=== PATIENT | female | born 1955 | race Caucasian/White ===

== ENCOUNTER 2022-10-05 00:11 | Day surgery (SDC) | payer MEDICARE, SELFPAY ==
[2022-09-26 13:48] VITALS: BMI 31.0
--- NOTE | 2022-09-26 14:07 | PC.NURSE ---
Report to the Outpatient Waiting Room, entrance under the green pavilion located off [address], at time __6:00AM on date __10/05/22 . Planned Procedure Time: __7:30AM . Time changes happen often and if your time is changed the preop area will call you the afternoon before. - You and your visitor will be asked to self-screen and do not enter if you have any COVID symptoms. - Only one visitor is requested with a max of two and NO children visitors are allowed at this time. - The patient visitor may be requested to leave or wait in car when not with patient due to distancing restrictions. - A mask is optional within the hospital. Patients may have clear liquids (water, carbonated beverages, clear teas, apple juice) until 3 hours prior to surgery with a maximum of 20 ounces. - No food from midnight until time of surgery Take the following medications with a SIP of water the morning of surgery: ___ESCITALOPRAM,LEVOTHYROXINE, TRAMADOL NEEDED Medications to discontinue per physician ____HOLD ALL VITAMINS/SUPPLEMENTS 3 DAYS PRE-OP Date to take last dose___10/01/22 Please no make-up, nail mauritanian, hairspray, perfume, deodorant, or body powder the day of surgery. No jewelry (including any body piercings) or valuables the day of surgery, leave them at home. Please take a shower or bath the night before, or the morning of, surgery with an antibacterial soap. Wear comfortable, loose fitting clothing. Children are encouraged to wear pajamas. - Jewelry must be removed prior to entering the operating room. Rings and piercings that are not removed may be cut off. - The hospital will not accept responsibility for valuables. - Please leave all valuables, including medications, at home the day of surgery. If you are going home after surgery, a licensed regional truck driver must drive you home. - NO public transportation without another adult if you receive anesthesia. - We recommend that an adult stay with you for 24 hours following discharge. - We also recommend that you do not drive, make important decision, drink alcoholic beverages, or take any drugs that were not prescribed by your health care provider for at least 24 hours after your discharge time. Follow any additional instructions given to you from your surgeon. If you or anyone in your household have experienced Covid symptoms in the past week, please notify your surgeon or the nurse liaison at the phone number below for possible testing. Telephone instructions given to __PATIENT and asked if any additional questions and then verbalized understanding. Patient advised to call surgeon office or pre surgery nurse liaison [phone] if any additional questions.
[2022-10-05 07:06] VITALS: BP 119/74; PULSE 48; RESP 16; TEMP 36.3; O2SAT 100
--- NOTE | 2022-10-05 07:16 | WPDHPUPDATE1 ---
History and Physical Update Update Date/Time: 10/05/22 07:16 History and Physical has been reviewed, including an updated exam of the patient. There are NO changes in the patient's condition. Risks, benefits, and alternatives have been discussed and questions answered. Patient agrees to proceed with procedure.
[2022-10-05] MEDS: LACTATED RINGERS 1,000 ML 30 ML IV CONT (07:21)
--- NOTE | 2022-10-05 07:28 | PM.IMHP ---
H&P: HPI History of Present Illness Date/Time: 10/05/22 07:28 Chief Complaint: Bladder lesion Narrative: 66-year-old with symptoms consistent with Hunner's ulceration. Visible lesion seen on cystoscopy Review of Systems Review of Systems: All systems reviewed & are unremarkable except as noted in HPI and below PMFSH Social History Social History Smoking packs per day: 0.5 Smoking cigarettes per day: 10.0 Years smoked: 25 Smoking pack-years: 12.50 Smoking status: Former smoker Tobacco type: cigarettes Smoking end date: 03/23/92 Alcohol intake: current Substance use: never Living arrangements: with family Additional living arrangements comments: SPOUSE Spiritual care concerns: No Meds Home Medications and Allergies Home Medications Medication Instructions Recorded Confirmed Type aloe vera 3 cap PO DAILY 09/26/22 09/26/22 History anastrozole 1 mg tablet 1 mg PO QAM 09/26/22 09/26/22 History escitalopram oxalate 20 mg tablet 20 mg PO QAM 09/26/22 09/26/22 History lactobacillus combination no.8 3 3 cell PO HS 09/26/22 09/26/22 History billion cell capsule levothyroxine 50 mcg tablet 50 mcg PO QAM 09/26/22 09/26/22 History tramadol 50 mg tablet 50 mg PO TID PRN Pain 09/26/22 09/26/22 History Allergies Allergy/AdvReac Type Severity Reaction Status Date / Time penicillin G Allergy Rash Verified 10/05/22 06:59 Vital Signs Vital Signs - 24 hr 10/05/22 07:06 Temperature 97.3 F L Pulse Rate 48 L Respiratory Rate 16 Blood Pressure 119/74 Pulse Oximetry 100 Oxygen Delivery Room Air Exam Narrative: Normal breathing No acute distress Alert oriented x3 Assessment and Plan Assessment and plan (1) Hunner's ulcer: Code(s): N30.10 - Interstitial cystitis (chronic) without hematuria Status: Acute Assessment and Plan: Cystoscopy, bladder biopsy, steroid injection. Understands risks of bleeding, infection, lack of efficacy, need for repeat procedures Agrees to proceed
--- NOTE | 2022-10-05 07:48 | P.PNAN_ITS ---
Anes - Initial Pre Proc Eval Procedure: Operation Date: 10/05/22 08:30 Proposed Procedures p Cystoscopy with Bladder Biopsy, Steroid Injection - Silvino Alvarado MD Date/Time: 10/05/22 07:48 Surgeon: Silvino Alvarado MD Pre Op Diagnosis: Hyper Vascular Lesion of Urinary Bladder Patient Data Age: 66 Gender: F Height: 1.63 m Weight: 81.8 kg Last Vital Signs Temp 36.3 C L 10/05/22 07:06 Pulse 48 L 10/05/22 07:06 Resp 16 10/05/22 07:06 BP 119/74 10/05/22 07:06 Pulse Ox 100 10/05/22 07:06 O2 Del Method Room Air 10/05/22 07:06 Allergies Allergy/AdvReac Type Severity Reaction Status Date / Time penicillin G Allergy Rash Verified 10/05/22 06:59 Home Medications Medication Instructions Recorded Confirmed Type aloe vera 3 cap PO DAILY 09/26/22 09/26/22 History anastrozole 1 mg tablet 1 mg PO QAM 09/26/22 09/26/22 History escitalopram oxalate 20 mg tablet 20 mg PO QAM 09/26/22 09/26/22 History lactobacillus combination no.8 3 3 cell PO HS 09/26/22 09/26/22 History billion cell capsule levothyroxine 50 mcg tablet 50 mcg PO QAM 09/26/22 09/26/22 History tramadol 50 mg tablet 50 mg PO TID PRN Pain 09/26/22 09/26/22 History Patient hx anesthesia problems: none Family hx anesthesia problems: none Results Review: All pre-operative results and documents have been reviewed as part of the pre- operative evaluation. [facility] Social History Social History Smoking packs per day: 0.5 Smoking cigarettes per day: 10.0 Years smoked: 25 Smoking pack-years: 12.50 Smoking status: Former smoker Tobacco type: cigarettes Smoking end date: 03/23/92 Alcohol intake: current Substance use: never Living arrangements: with family Additional living arrangements comments: SPOUSE Spiritual care concerns: No Anes - Eval Final PreProcedure Day of Procedure 10/05/22 07:48 Patient weight: obese Heart: regular rate and rhythm Lungs: clear to auscultation Airway: Mallampati scale class II Neurological: alert and oriented Last oral intake: >/= 8 hours ASA classification: III Emergent: no Anesthetic plan: proceed Anesthesia type and monitoring: general GIVS and standard monitoring Results Review: All pre-operative results and documents have been reviewed as part of the pre- operative evaluation. Informed Consent: The patient's anesthetic plan and its attendant risks and benefits were discussed with the patient/family/POA. Questions were solicited and answers provided to the satisfaction of the patient/family/POA.
[2022-10-05] MEDS: ceFAZolin 2 GM/D5W 50 ML 2 GM/50 ML BAG IVPB (08:27)
[2022-10-05] MEDS: LIDOCAINE HCL 2% GEL UROJET 10 ML PKG MUCOUS MEM (08:39)
[2022-10-05] MEDS: TRIAMCINOLONE ACET INJ 40 MG/ML VIAL 200 MG IM (08:44)
--- NOTE | 2022-10-05 08:51 | W.PM.PROC2 ---
Procedure Note - Detailed Date of Procedure 10/05/22 Pre-op Diagnosis Hyper Vascular Lesion of Urinary Bladder Post-op Diagnosis Same Procedure Performed Cystoscopy, bladder biopsy, steroid injection Surgeon Silvino Alvarado MD Anesthesia MAC and Local Indications This is a woman with visible lesions on cystoscopy consistent with Hunner's ulcers. She also has symptoms consistent with that as well. She is here today for steroid injection. She understands risks of bleeding, infection, lack of efficacy, damage to the urinary tract, need for repeat procedures. She agrees to proceed Findings Multiple areas of Hunner's ulceration Description of Procedure She was correctly identified. Informed consent obtained. She from the operating room. She was given MAC anesthesia. She was placed in the dorsal lithotomy position. She was prepped and draped in a sterile fashion. Time-out performed. Uro jet was applied. Cystoscopy was performed. There was for areas of Hunner's ulceration her bladder. Most of them on the posterior wall. All of the were away from the ureters. I biopsied 1 of these areas. I then general see fulgurated all areas. I then injected Kenalog. 40 mg per mill. 5 cc total was equal to 100 mg of Kenalog. There was minimal bleeding from the injection sites. Her bladder was examined under low insufflation pressures. There was no active bleeding. She was awakened transferred to PACU in stable condition. Estimated Blood Loss 1 Drains No Packing No Pathology Yes (Sent to pathology) Complications No immediate complications Condition Stable Disposition PACU
[2022-10-05 08:54] VITALS: BP 132/69; PULSE 52; RESP 12; O2SAT 94
[2022-10-05 09:20] VITALS: BP 139/56; PULSE 45; RESP 12
[2022-10-05] MEDS: oxyCODONE HCL (*CRX) 5 MG TAB IR PO (09:45)
[2022-10-05 09:50] VITALS: BP 130/76; PULSE 46; RESP 12
== END 2022-10-05 09:56 | disposition home or self-care (01) ==
PROVIDERS: Visit Provider Urology
PROC: 0TBB8ZX Excision of Bladder, Via Natural or Artificial Opening Endoscopic, Diagnostic (ICD-10-PCS; CPT 52204; principal; 2022-10-05 08:30)
DX: N30.10 Interstitial cystitis (chronic) without hematuria (principal); Z87.891 Personal history of nicotine dependence
CPT/HCPCS: 52204; 52283; 88305; A9270; J0690; J2250; J2704; J3010; J3301; J7120

== ENCOUNTER 2024-06-12 00:15 | Day surgery (SDC) | payer MEDICARE, SELFPAY ==
--- NOTE | 2024-06-07 17:02 | PM.IMHP ---
H&P: HPI History of Present Illness Date/Time: 06/07/24 17:02 Chief Complaint: bladder pain Narrative: h/o Hunner ulcer Review of Systems Review of Systems: All systems reviewed & are unremarkable except as noted in HPI and below PMFSH Social History Social History Smoking packs per day: 0.5 Smoking cigarettes per day: 10.0 Years smoked: 25 Smoking pack-years: 12.50 Smoking status: Former smoker Tobacco type: cigarettes Smoking end date: 03/23/92 Alcohol intake: current Substance use: never Living arrangements: with family Additional living arrangements comments: SPOUSE Spiritual care concerns: No Meds Home Medications and Allergies Home Medications Medication Instructions Recorded Confirmed Type aloe vera 3 cap PO DAILY 09/26/22 09/26/22 History anastrozole 1 mg tablet 1 mg PO QAM 09/26/22 09/26/22 History escitalopram oxalate 20 mg tablet 20 mg PO QAM 09/26/22 09/26/22 History lactobacillus combination no.8 3 3 cell PO HS 09/26/22 09/26/22 History billion cell capsule levothyroxine 50 mcg tablet 50 mcg PO QAM 09/26/22 09/26/22 History tramadol 50 mg tablet 50 mg PO TID PRN Pain 09/26/22 09/26/22 History hydrocodone 5 mg-acetaminophen 325 1 tablet PO Q6H PRN pain #14 tabs 10/05/22 Rx mg tablet phenazopyridine 200 mg tablet 200 mg PO TID PRN pain 6 doses #30 10/05/22 Rx (Pyridium) tabs Allergies Allergy/AdvReac Type Severity Reaction Status Date / Time penicillin G Allergy Rash Verified 10/05/22 06:59 Exam Narrative: NAD A+O x3 Assessment and Plan Assessment and plan (1) Hunner's ulcer: Code(s): N30.10 - Interstitial cystitis (chronic) without hematuria Status: Acute Assessment and Plan: cysto/bx/steroid injection
[2024-06-08 14:21] VITALS: BMI 30.9
--- NOTE | 2024-06-08 14:29 | PC.NURSE ---
9 Report to the Outpatient Waiting Room, entrance under the green pavilion located off [facility], at time _0615_ on date _[id number]_. Planned Procedure Time: _0815_.? Time changes happen often and if your time is changed the preop area will call you the afternoon before. - You and your visitor will be asked to self-screen and do not enter if you have any COVID symptoms. Please call surgeon if you need to reschedule. - A mask is optional within the hospital at this time. Patients may have clear liquids (water, carbonated beverages, clear teas, apple juice) until 3 hours prior to surgery with a maximum of 20 ounces. - No food from midnight until time of surgery and no smoking Take only the following medications with a SIP of water on the morning of surgery: ____Escitalopram and Levothyroxine. DO NOT STOP ANY OF YOUR OTHER PRESCRIPTION MEDICATIONS PRIOR TO SURGERY EXCEPT THE FOLLOWING Medications to discontinue per physician ____Patient already stopped probiotic. Please no make-up, nail czech, hairspray, perfume, deodorant, or body powder the day of surgery.? No jewelry (including any body piercings) or valuables the day of surgery, leave them at home.? Please take a shower or bath the night before, or the morning of, surgery with an antibacterial soap.? Wear comfortable, loose fitting clothing.? - Jewelry must be removed prior to entering the operating room.? Rings and piercings that are not removed may be cut off. - The hospital will not accept responsibility for valuables.? - Please leave all valuables, including medications, at home the day of surgery. If you are going home after surgery, a licensed class b driver must drive you home.? - NO public transportation without another adult if you receive anesthesia. - We recommend that an adult stay with you for 24 hours following discharge. - We also recommend that you do not drive, make important decision, drink alcoholic beverages, or take any drugs that were not prescribed by your health care provider for at least 24 hours after your discharge time. Follow any additional instructions given to you from your surgeon. Telephone instructions given to __Patty___and asked if any additional questions and then verbalized understanding. Patient advised to call surgeon office or pre surgery nurse liaison [phone] if any additional questions.
--- NOTE | 2024-06-12 04:36 | WPDHPUPDATE1 ---
History and Physical Update Update Date/Time: 06/12/24 04:36 History and Physical has been reviewed, including an updated exam of the patient. There are NO changes in the patient's condition. Risks, benefits, and alternatives have been discussed and questions answered. Patient agrees to proceed with procedure.
[2024-06-12 06:30] VITALS: BP 126/65; PULSE 42; RESP 16; TEMP 36.6; O2SAT 100
[2024-06-12] MEDS: LACTATED RINGERS 1,000 ML 30 ML IV CONT (07:15)
--- NOTE | 2024-06-12 08:24 | WPDANESEPPF ---
Anes - Initial Pre Proc Eval Procedure: Operation Date: 06/12/24 08:15 Proposed Procedures p Cystoscopy, Bladder Biopsy with Steroid Injection - Silvino Alvarado MD Date/Time: 06/12/24 08:24 Surgeon: Silvino Alvarado MD Pre Op Diagnosis: hypervascular lesion of urinary bladder Patient Data Age: 68 Gender: F Height: 1.63 m Weight: 81.8 kg Allergies Allergy/AdvReac Type Severity Reaction Status Date / Time penicillin G Allergy Rash Verified 06/08/24 14:17 Home Medications Medication Instructions Recorded Confirmed Type anastrozole 1 mg tablet 1 mg PO QAM 09/26/22 06/08/24 History escitalopram oxalate 20 mg tablet 20 mg PO QAM 09/26/22 06/08/24 History lactobacillus combination no.8 3 3 cell PO HS 09/26/22 06/08/24 History billion cell capsule levothyroxine 50 mcg tablet 50 mcg PO QAM 09/26/22 06/08/24 History cetirizine 10 mg tablet (Zyrtec) 10 mg PO DAILY 06/08/24 06/08/24 History fluticasone propionate 50 2 spray intranasal TID 06/08/24 06/08/24 History mcg/actuation nasal spray,suspension omeprazole 40 mg capsule,delayed 40 mg PO BID 06/08/24 06/08/24 History release Patient hx anesthesia problems: none Family hx anesthesia problems: none Results Review: All pre-operative results and documents have been reviewed as part of the pre-operative evaluation. [facility] Social History Social History Smoking packs per day: 1 Smoking cigarettes per day: 20.0 Years smoked: 30 Smoking pack-years: 30.00 Smoking status: Former smoker Tobacco type: cigarettes Smoking end date: 06/08/04 Alcohol intake: current Drinks per week: 4 Substance use: never Living arrangements: with family Additional living arrangements comments: SPOUSE Spiritual care concerns: No Anes - Eval Final PreProcedure Day of Procedure 06/12/24 08:24 Patient weight: obese Heart: regular rate and rhythm Lungs: clear to auscultation Airway: Mallampati scale class II Neurological: alert and oriented Last oral intake: >/= 8 hours ASA classification: III Emergent: no Anesthetic plan: proceed Anesthesia type and monitoring: general GIVS and standard monitoring Results Review: All pre-operative results and documents have been reviewed as part of the pre-operative evaluation. Hypothyroidism, SHERI but noncompliant w CPAP. Informed Consent: The patient's anesthetic plan and its attendant risks and benefits were discussed with the patient/family/POA. Questions were solicited and answers provided to the satisfaction of the patient/family/POA.
[2024-06-12] MEDS: ceFAZolin 2 GM/D5W 50 ML 2 GM/50 ML BAG IVPB (08:40)
[2024-06-12] MEDS: LIDOCAINE HCL 2% GEL UROJET 10 ML PKG MUCOUS MEM (08:40)
[2024-06-12] MEDS: TRIAMCINOLONE ACET INJ 40 MG/ML VIAL 200 MG XX (08:49)
--- NOTE | 2024-06-12 08:57 | W.PM.PROC2 ---
Procedure Note - Detailed Date of Procedure 06/12/24 Pre-op Diagnosis hypervascular lesion of urinary bladder/Hunner ulceration Post-op Diagnosis Same Procedure Performed Cystoscopy, bladder biopsy, steroid injection Surgeon Silvino Alvarado MD Anesthesia MAC and Local Indications She has history of Hunner's ulcer variety interstitial cystitis. She is here today for repeat treatment. Understands risks of bleeding, infection, lack of efficacy. Agrees to proceed Findings Hunner ulceration near dome of bladder Description of Procedure She is correctly identified. Informed consent was obtained. She is from the operating room. She was given monitored anesthesia care. She was placed in dorsal lithotomy position. She was prepped draped sterile fashion. Time-out performed. On cystoscopy she had mild trabeculations. She had areas of redness and Hunner's ulceration near the dome of her bladder. One of these areas was biopsied. I did only a superficial biopsy. I then injected Kenalog. 5 cc. 40 milligrams/mL. I injected this into the ulcerated areas. The ulcerated areas were then fulgurated. There was no bleeding normal insufflation pressures. She was awakened transferred to PACU in stable condition. Uro jet was applied before going to the recovery room Implants None Estimated Blood Loss 1 Packing No Pathology Yes (Bladder biopsy) Complications No immediate complications Condition Stable Disposition PACU
[2024-06-12 09:00] VITALS: BP 110/60; PULSE 73; RESP 16; O2SAT 99
[2024-06-12 09:04] VITALS: BMI 31.7
--- NOTE | 2024-06-12 09:18 | P.PNAN_ITS ---
Anes - Initial Pre Proc Eval Procedure: Operation Date: 06/12/24 08:15 Proposed Procedures p Cystoscopy, Bladder Biopsy with Steroid Injection - Silvino Alvarado MD Date/Time: 06/12/24 09:18 Surgeon: Silvino Alvarado MD Pre Op Diagnosis: hypervascular lesion of urinary bladder Patient Data Age: 68 Gender: F Height: 1.63 m Weight: 83.8 kg Last Vital Signs Temp 97.8 F 06/12/24 06:30 Pulse 42 L 06/12/24 06:30 Resp 16 06/12/24 06:30 BP 126/65 06/12/24 06:30 Pulse Ox 100 06/12/24 06:30 O2 Del Method Room Air 06/12/24 06:30 Allergies Allergy/AdvReac Type Severity Reaction Status Date / Time penicillin G Allergy Rash Verified 06/08/24 14:17 Home Medications Medication Instructions Recorded Confirmed Type anastrozole 1 mg tablet 1 mg PO QAM 09/26/22 06/08/24 History escitalopram oxalate 20 mg tablet 20 mg PO QAM 09/26/22 06/08/24 History lactobacillus combination no.8 3 3 cell PO HS 09/26/22 06/08/24 History billion cell capsule levothyroxine 50 mcg tablet 50 mcg PO QAM 09/26/22 06/08/24 History cetirizine 10 mg tablet (Zyrtec) 10 mg PO DAILY 06/08/24 06/08/24 History fluticasone propionate 50 2 spray intranasal TID 06/08/24 06/08/24 History mcg/actuation nasal spray,suspension omeprazole 40 mg capsule,delayed 40 mg PO BID 06/08/24 06/08/24 History release tramadol 50 mg tablet 50 mg PO Q6H PRN pain #10 tabs 06/12/24 Rx Patient hx anesthesia problems: none Family hx anesthesia problems: none Results Review: All pre-operative results and documents have been reviewed as part of the pre- operative evaluation. [facility] Social History Social History Smoking packs per day: 1 Smoking cigarettes per day: 20.0 Years smoked: 30 Smoking pack-years: 30.00 Smoking status: Former smoker Tobacco type: cigarettes Smoking end date: 06/08/04 Alcohol intake: current Drinks per week: 4 Substance use: never Living arrangements: with family Additional living arrangements comments: SPOUSE Spiritual care concerns: No Anes - Eval Final PreProcedure Day of Procedure 06/12/24 09:18 Patient weight: normal Heart: regular rate and rhythm Lungs: clear to auscultation Airway: Mallampati scale class II Neurological: alert and oriented Last oral intake: >/= 8 hours ASA classification: III Emergent: no Anesthetic plan: proceed Anesthesia type and monitoring: general GIVS and standard monitoring Results Review: All pre-operative results and documents have been reviewed as part of the pre- operative evaluation. HTN, OA, pacemaker Biotronik, not pacer dep. Hyperlipidemia. Informed Consent: The patient's anesthetic plan and its attendant risks and benefits were discussed with the patient/family/POA. Questions were solicited and answers p rovided to the satisfaction of the patient/family/POA.
[2024-06-12 09:25] VITALS: BP 133/85; PULSE 59; RESP 16
[2024-06-12 09:45] VITALS: BP 140/65; PULSE 53; RESP 16
== END 2024-06-12 09:55 | disposition home or self-care (01) ==
PROVIDERS: Visit Provider Urology
PROC: 0TBB8ZX Excision of Bladder, Via Natural or Artificial Opening Endoscopic, Diagnostic (ICD-10-PCS; CPT 52204; principal; 2024-06-12 08:15)
DX: N30.10 Interstitial cystitis (chronic) without hematuria (principal); Z87.891 Personal history of nicotine dependence
CPT/HCPCS: 52283; 52204; 88305; J0690; J2250; J2405; J2704; J3010; J3301; J7120